=== PATIENT | female | born 1965 | race African-American/Black ===

== ENCOUNTER 2018-01-30 13:41 | Emergency (ER) | payer SELFPAY ==
[~2018-01-30] VITALS: Ht 149.9 cm; Wt 59.0 kg
[2018-01-30 14:02] VITALS: BP 168/81
--- NOTE | 2018-01-30 14:27 | Emergency Room Report ---
History of Present Illness General Chief Complaint: Upper Extremity Injury Source: Patient Present Illness HPI At approx 2:20PM patient left without being seen Allergies: Coded Allergies: No Known Allergies (Unverified , 01/30/18) Patient History Last Menstrual Period: 01/23/18 Nursing Documentation-[facility] Past Medical History: No Stated History Physical Exam Vital Signs Date Time Temp Pulse Resp B/P (MAP) Pulse Ox O2 Delivery O2 Flow Rate FiO2 01/30/18 13:53 98.4 77 18 168/81 96 Room Air Medical Decision Making PA Attestation Dr. Flores is my supervising physician. Patient management was discussed with my supervising physician ER Course At approx 2:20PM patient left without being seen Last Vital Signs Date Time Temp Pulse Resp B/P (MAP) Pulse Ox O2 Delivery O2 Flow Rate FiO2 01/30/18 14:02 98.4 74 18 168/81 96 Room Air Disposition: LEFT W/OUT BEING SEEN Condition: Unknown Referrals: NON PHYSICIAN (PCP) GOPAL KERR Jan 30, 2018 14:27
[2018-01-30 14:43] VITALS: BP 168/81
[2018-01-30] MEDS ORDERED: NKM (22:08)
[2018-01-30] MEDS ORDERED: NORCO 5-325 TA1 EACH ORAL (23:43)
[2018-01-30] MEDS ORDERED: IBUPROFEN600 MG ORAL (23:43)
== END 2018-01-30 14:36 | disposition left against medical advice (07) ==
LOC: EMR 14:20
DX: S49.90XA Unspecified injury of shoulder and upper arm, unspecified arm, initial encounter (principal); Z53.21 Procedure and treatment not carried out due to patient leaving prior to being seen by health care provider
CPT/HCPCS: 99281

== ENCOUNTER 2018-01-30 21:44 | Emergency (ER) | payer SELFPAY ==
[~2018-01-30] VITALS: Ht 149.9 cm; Wt 59.0 kg
[2018-01-30 22:03] VITALS: BP 128/69
[2018-01-30] MEDS ORDERED: NKM (22:08)
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
[2018-01-30] MEDS ORDERED: NORCO 5-325 TA1 EACH ORAL (23:43)
[2018-01-30] MEDS ORDERED: IBUPROFEN600 MG ORAL (23:43)
[2018-01-30 23:48] VITALS: BP 131/67
== END 2018-01-30 23:48 | disposition home or self-care (01) ==
LOC: EMR 22:30
DX: S46.911A Strain of unspecified muscle, fascia and tendon at shoulder and upper arm level, right arm, initial encounter (principal); S50.01XA Contusion of right elbow, initial encounter; Y08.89XA Assault by other specified means, initial encounter; Y92.89 Other specified places as the place of occurrence of the external cause
CPT/HCPCS: 99283